=== PATIENT | female | born 1975 | race Caucasian/White ===

== ENCOUNTER 2019-05-08 21:52 | Emergency (ER) | payer OTHER ==
[~2019-05-08] VITALS: Ht 165.1 cm; Wt 90.7 kg
[2019-05-09] MEDS ORDERED: Augmentin 875-1 EACH PO (00:32)
== END 2019-05-09 01:13 | disposition home or self-care (01) ==
LOC: ER 21:52
DX: K04.7 Periapical abscess without sinus (principal)
CPT/HCPCS: 41800; 64400; 99283-25; A9270